=== PATIENT | male | born 1980 | race Caucasian/White ===

== ENCOUNTER 2022-03-06 08:47 | Emergency (ER) | payer OTHER ==
[~2022-03-06 08:47] MED LIST: VIBRAMYCIN 100100 MG PO
[2022-03-06 09:45] LABS: HEMOGLOBIN 14.2 gm/dl (14.0-17.5); RED BLOOD COUNT 4.65 M/UL (4.20-5.50); WHITE BLOOD COUNT 7.7 K/UL (4.5-11.0)
[2022-03-06 10:16] LABS: BUN/CREATININE RATIO 18 (0-10)
[2022-03-06] MEDS ORDERED: ASPIRIN CHEWABL81 MG PO (11:35)
== END 2022-03-06 11:50 | disposition home or self-care (01) ==
LOC: ER1 08:47
PROVIDERS: Emergency Medicine
DX: R07.9 Chest pain, unspecified (principal)
CPT/HCPCS: 71045; 80053; 82550; 82553; 84484; 85025; 85379; 93005; 99285